=== PATIENT | female | born 1940 | race Caucasian/White ===

== ENCOUNTER 2022-04-08 06:52 | Emergency (ER) | payer MEDICARE, MEDICAID ==
[~2022-04-08] VITALS: Ht 162.6 cm; Wt 65.9 kg
[2022-04-08 07:05] VITALS: TEMP 98.5
[2022-04-08 08:34] VITALS: BP 129/66; PULSE 76
== END 2022-04-08 08:34 | disposition home or self-care (01) ==
LOC: COL.ER 06:52
DX: Z46.59 Encounter for fitting and adjustment of other gastrointestinal appliance and device (principal); Z28.310 Unvaccinated for COVID-19

== ENCOUNTER 2022-04-11 17:48 | Emergency (ER) | payer MEDICARE, MEDICAID ==
[~2022-04-11] VITALS: Ht 162.6 cm; Wt 65.9 kg
[2022-04-11 17:52] VITALS: BP 154/84; TEMP 98.7
[2022-04-11 20:09] VITALS: PULSE 84
== END 2022-04-11 20:09 | disposition home or self-care (01) ==
LOC: COL.ER 17:48
DX: K94.13 Enterostomy malfunction (principal); Z91.040 Latex allergy status; Z28.310 Unvaccinated for COVID-19